=== PATIENT | female | born 1980 | race Caucasian/White ===

== ENCOUNTER 2016-10-13 13:59 | Outpatient (CLI) | payer SELFPAY | END 2016-10-13 14:00 | disposition EMS.NT | LOC: EMS 13:59 | PROVIDERS: ATTEND Surgery | DX: S01.03XA Puncture wound without foreign body of scalp, initial encounter (principal); X95.01XA Assault by airgun discharge, initial encounter; Y92.009 Unspecified place in unspecified non-institutional (private) residence as the place of occurrence of the external cause ==